=== PATIENT | female | born 1990 | race Two or more races ===

== ENCOUNTER → 2021-01-01 | Emergency (ER) | payer MEDICAID ==
[~2021-01-01] VITALS: Ht 165.1 cm; Wt 54.4 kg
[2021-01-01 05:46] VITALS: BP 122/90
== END | disposition left against medical advice (07) ==
LOC: EDUNIT# 05:39 → ER 05:40 → EDBD 05:40
DX: R21 Rash and other nonspecific skin eruption (principal); Z53.21 Procedure and treatment not carried out due to patient leaving prior to being seen by health care provider